=== PATIENT | female | born 1970 | race Caucasian/White ===

== ENCOUNTER 2023-02-05 07:32 | Observation (INO) ==
--- NOTE | 2023-01-20 11:43 | PAT Medication Instructions ---
Medication Instructions Date of Service January 20, 2023 Home Medications buspirone 10 mg tablet 10 mg PO QAM duloxetine 60 mg capsule,delayed release 60 mg PO QAM hydrochlorothiazide 25 mg tablet 25 mg PO QAM lisinopril 10 mg tablet 10 mg PO QAM meloxicam 7.5 mg tablet 7.5 mg PO UD semaglutide 0.25 mg or 0.5 mg (2 mg/3 mL) subcutaneous pen injector (Ozempic) 0.5 mg subcut Q7D weight loss/insulin resistance Continue as directed semaglutide 0.25 mg or 0.5 mg (2 mg/3 mL) subcutaneous pen injector (Ozempic) 0.5 mg subcut Q7D weight loss/insulin resistance ASK your surgeon for instructions meloxicam 7.5 mg tablet 7.5 mg PO UD DO NOT take the morning of surgery hydrochlorothiazide 25 mg tablet 25 mg PO QAM lisinopril 10 mg tablet 10 mg PO QAM Take morning of surgery With a small sip of water, OTHERWISE NOTHING TO EAT OR DRINK AFTER MIDNIGHT: buspirone 10 mg tablet 10 mg PO QAM duloxetine 60 mg capsule,delayed release 60 mg PO QAM Other Notes If you have any questions please call us at [phone] or [phone] or [phone] or [phone]
--- NOTE | 2023-01-24 15:39 | Anesthesiology Consultation ---
Date of Service January 24, 2023 Assessment & Plan (1) Encounter for pre-operative examination: - awaiting cardiology pre-operative evaluation appointment. She requests a [facility] provider in [facility] or [place] if possible, otherwise would like [place] [facility]. Pre-operative appointment form completed. - dyspnea on flat surfaces: Case discussed regarding this and overall with Dr. Damon who advised patient have cardiology pre-operative evaluation. Patient was made aware at PAT visit, she verbalized understanding and agreement-denied questions or concerns. Surgeon's office made aware. - check BSG and urine test STAT am DOS. - previous neuraxial response: patient notes that with previous once spinal started to wear off she developed itching in legs and was treated with Benadryl, she states had no itching upon receiving spinal or throughout until sensation started to wear off. Denies rash, difficulty breathing, speaking or swallowing. - PCP pre-operative appointment 01/23/23 [facility]: "...preop exam. Left knee replacement scheduled with Dr Flores 02/05/23 at [facility]...History of type 2 diabetes. Last A1c was 6.7 in 08/2022...EKG without acute ST-T changes. Patient denies any chest pain, shortness breath, lightheadedness, palpitations...can be cleared for surgery so long as lab work is reasonably normal...3-4 cm erythematous plaque on her right lower leg, lateral side. She has used triamcinolone cream on and off which helps a little bit, however the plaque never truly goes away. Appears psoriasiform in nature. Will switch to betamethasone..." Chart Review Chart Review: Pending: Refer to Additional Notes / Consult section and Patient seen in Pre Admission Testing Teaching & Discussion Pre-Anesthesia Teaching/Discussion Notes: Instructed NPO after midnight before surgery, except medications with 15 cc of water. Medication instructions provided according to the PAT guidelines. History Surgery Operation Date: 02/05/23 09:45 Proposed Procedures p Left Total Knee Arthroplasty - Pop Flores MD Height/Weight Height: 5 ft 1 in Weight: 131.2 kg Allergies Allergy/AdvReac Type Severity Reaction Status Date / Time Penicillins Allergy Intermediate rash Verified 01/24/23 15:29 Medications Home Medications Medication Instructions Recorded Confirmed Last Taken buspirone 10 mg tablet 10 mg PO QAM 01/17/23 01/17/23 Unknown duloxetine 60 mg capsule,delayed 60 mg PO QAM 01/17/23 01/17/23 Unknown release hydrochlorothiazide 25 mg tablet 25 mg PO QAM 01/17/23 01/17/23 Unknown lisinopril 10 mg tablet 10 mg PO QAM 01/17/23 01/17/23 Unknown meloxicam 7.5 mg tablet 7.5 mg PO UD 01/17/23 01/17/23 Unknown semaglutide 0.25 mg or 0.5 mg (2 0.5 mg subcut Q7D weight 01/17/23 01/17/23 Unknown mg/3 mL) subcutaneous pen injector loss/insulin resistance (Ozempic) Past Medical History Medical History (Updated 01/24/23 @ 15:38 by Isidra Parkinson PA-C) Anxiety and depression Diabetes mellitus NIDDM GERD (gastroesophageal reflux disease) controlled, stable per pt History of COVID-18 august or august 2022, tested at urgent care in [place], not hosp; fatigue, cough, nausea for 2 weeks following>no current symptoms Hypertension controlled, stable per pt Sleep apnea dx years ago, does not use device Patient denies h/o stroke, seizures, heart attack, heart failure, blood clots or blood transfusions. Exercise / Class Metabolic Activity III < 4 Walking/Shop/Light housework (SOB with usual activities ongoing x over past year-denies change or worsening, denies chest discomfort) Past Surgical History Surgical History Hx laparoscopic cholecystectomy Hx of arthroscopy of left knee Hx of section x3 [place] teeth extracted Past Anesthesia History Other (slow to wake up-denies unexpected extended intubation or re-intubation; mother with awareness during surgery) History of PONV No Hx of PONV and Hx of Motion Sickness Social History Smoking Status: Never smoker Do You Dip or Chew Tobacco: No Hx Alcohol Use: Yes alcohol intake frequency: holidays/special occasions only Hx Substance Use: No substance use type: does not use Review of Systems Patient denies chest pain, fever, chills, cough, wheezing, or palpitations. Physical Exam Vital Signs Vitals BP 118/70 P 81 TEMP 98.8 SP02 96% on RA RESP 18 Physical Patient resting comfortably in chair in NAD, alert and oriented, responding appropriately throughout entire visit Full cervical extension range of motion without pain TMD < 3 finger breadths Mallampati Score 3, small oral opening Dentition: intact, denies chipped or loose teeth, caps/crowns, implants or bridges Lungs: normal respiratory effort. Good air movement, clear throughout to auscultation, no adventitious breath sounds Cardiac: regular rate and rhythm, no murmurs noted Carotid arteries: negative bruit bilat Lab Results Anesthesia Preop Results Results Anesthesia Widget: WBC 8.15 K/ul (4.8-10.8) 01/24/23 Hgb 14.3 g/dl (12.0-16.0) 01/24/23 Hct 42.0 % (37.0-47.0) 01/24/23 Plt 290 K/uL (130-400) 01/24/23 Na 137 mmol/L (136-145) 01/24/23 K 3.8 mmol/L (3.5-5.1) 01/24/23 Cl 101 mmol/L (98-107) 01/24/23 CO2 29 mmol/L (21-32) 01/24/23 BUN 17 mg/dl (6-23) 01/24/23 Creat 0.64 mg/dl (0.6-1.2) 01/24/23 Glucose Level 129 mg/dl (70-99(Fasting)) H 01/24/23 PT 10.8 Seconds (9.0-12.0) 01/24/23 PTT 27.6 Seconds (21.0-31.0) 01/24/23 INR 1.0 (0.9-1.1) 01/24/23 HA1c 6.5 % (4.5-5.6) H 01/24/23 Urine Color Yellow 01/24/23 Urine Appearance Clear (Clear) 01/24/23 Urine pH 7.0 (4.5-7.5) 01/24/23 Urine Specific Felt 1.019 (1.000-1.030) 01/24/23 Urine Protein Negative (Negative) 01/24/23 Urine Glucose (UA) Negative (Negative) 01/24/23 Urine Ketones Negative (Negative) 01/24/23 Urine Blood Negative (Negative) 01/24/23 Urine Nitrite Negative (Negative) 01/24/23 Urine Bilirubin Negative (Negative) 01/24/23 Urine Urobilinogen Negative (Negative) 01/24/23 Urine Leukocyte Esterase Negative (Negative) 01/24/23 Blood Type O Positive 01/24/23 Antibody Screen NEGATIVE 01/24/23 Testing Electrocardiogram Date: 01/23/23 NSR, rate 68 bpm Low voltage QRS, consider pulmonary disease, pericardial effusion or normal variant Cannot rule out anterior infarct, age undetermined Chest X-Ray Date: 01/24/23 No acute chest disease
--- NOTE | 2023-02-04 08:48 | History & Physical Report ---
Date of Service February 04, 2023 Assessment & Plan (1) Primary osteoarthritis of left knee: Plan: Treatment options discussed with the patient. She has failed conservative measures and would like to proceed with surgery. Risks, benefits and alternatives to surgery including but not limited to infection, DVT, pain, stiffness, need for revision surgery, damage to blood vessels, damage to nerves, PE, , were discussed with the patient and they wish to proceed. Plan on left total knee arthroplasty scheduled for [facility] on 02/05/[address] Flores. Plan on home health PT upon discharge. Plan on Xarelto 10mg daily for DVT prophylaxis for 1 mo post operatively. All questions answered. She will follow up post op. History of Present Illness Chief Complaint: Left knee pain Primary Care Provider: Elizabeth Leon DO 52yo female with PMHx significant for HTN, high cholesterol, DM2, DIONNE, anxiety who presents with ongoiing left knee pain. Patient has failed conservative measures. Her pain is interfering with her daily activities and she would like to proceed with surgical intervention. Patient denies headaches, sweats, fevers, chills, double vision, blurred vision, cough, sore throat, dysphagia, chest pain, sob, wheezing, n/v/d/c, numbness, tingling, fatigue, urinary symptoms, mood disorders. ROS positive for left knee pain and stiffness. Allergies Allergy/AdvReac Type Severity Reaction Status Date / Time Penicillins Allergy Intermediate rash Verified 01/24/23 15:29 Home Medications Medication Instructions Recorded Confirmed Type buspirone 10 mg tablet 10 mg PO QAM 01/17/23 01/17/23 History duloxetine 60 mg capsule,delayed 60 mg PO QAM 01/17/23 01/17/23 History release hydrochlorothiazide 25 mg tablet 25 mg PO QAM 01/17/23 01/17/23 History lisinopril 10 mg tablet 10 mg PO QAM 01/17/23 01/17/23 History meloxicam 7.5 mg tablet 7.5 mg PO UD 01/17/23 01/17/23 History semaglutide 0.25 mg or 0.5 mg (2 0.5 mg subcut Q7D weight 01/17/23 01/17/23 History mg/3 mL) subcutaneous pen injector loss/insulin resistance (Ozempic) Past Med/Surg History Medical History (Updated 02/04/23 @ 08:46 by Tim Vitale PA-C) Anxiety and depression Diabetes mellitus NIDDM GERD (gastroesophageal reflux disease) controlled, stable per pt History of COVID-19 july or august 2022, tested at urgent care in [place], not hosp; fatigue, cough, nausea for 2 weeks following>no current symptoms Hypertension controlled, stable per pt Sleep apnea dx years ago, does not use device Surgical History Hx laparoscopic cholecystectomy Hx of arthroscopy of left knee Hx of section x3 [place] teeth extracted Social History Smoking Status: Never smoker Second Hand Exposure: No; Do You Dip or Chew Tobacco: No; Tobacco Cessation Education Requested by Patient: No Hx Alcohol Use: Yes Hx Substance Use: No Preferred Language: Romanian Communication Ability: Effective 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: No Beliefs That Will Affect Care: None Current Living Situation: Spouse Other Information That Helps Us Care for You: No Feels Safe at Home: Yes Safety Concerns: Feels Safe At This Time Assistive Devices: Glasses Assistive Devices Comment: reading glasses prn Review of Systems All systems reviewed & are unremarkable except as noted in HPI & below Physical Exam Constitutional: well developed and well nourished; no acute distress Eyes: PERRL, conjunctivae normal, anicteric sclerae ENMT: external ear and nose normal, oropharynx normal Neck: trachea midline, no thyromegaly Respiratory: normal respiratory effort, lungs clear to auscultation Cardiovascular: RRR, no murmur, no edema Musculoskeletal: Left knee: Varus alignment. Tenderness medial joint line. Mild crepitation. Positive Jeniffer's, stable to valgus and varus stress. ROM 0-125 degrees with pain. Skin: no rashes, warm and dry Neurologic: patellar DTR's 2+ bilat, sensation intact Psychiatric: A+Ox3, euthymic affect Results & Data Diagnostic Findings Left knee radiographs: X-rays of the bilateral knees demonstrate she has severe bilateral knee osteoarthritis, bone on bone in the medial compartment. Subluxation of the femur medially on the tibia. She has tricompartmental osteophytes. Moderate patellofemoral OA. Centrally aligned patella bilaterally. Four-view bilateral knee x-rays.
[~2023-02-05 07:32] MED LIST: ACETAMINOPHEN 500 MG TAB PO SCH; ALLERGY Noted to ORDERED Medication SCH; BUPIVACAINE 0.5 % 5 MG/1 ML PF 10ML VIAL ONE; CeleBREX 200 MG CAP PO SCH; EPINEPHrine INJ 1 MG/ML AMP ONE; FAMOTIDINE 20 MG TAB PO SCH; GABAPENTIN 900 MG DOSE PO SCH; LR 500ML BOLUS, THEN 15ML/HR IV SCH; LR 60ML/HR IV SCH; METOCLOPRAMIDE HCL 10 MG TABLET PO SCH; ROPIVACAINE 0.5% 5 MG/ML 30 ML VIAL ONE; ROPIVACAINE 0.5% HCL/PF 150 MG, BUPIVACAINE 0.75% MPF 20 ML, EPINEPHrine 30MG/30ML (OR ... INSTIL SCH; TRANEXAMIC ACID 1,000 MG **IV Intra-op IV SCH; TRANEXAMIC ACID 1,000 MG **IV Pre-op IV SCH
[2023-02-05] MEDS ORDERED: PROPOFOL IV EMULSION 10 MG/ML 20 ML VIAL IV ONE ×3 (07:50→11:47)
[2023-02-05] MEDS ORDERED: ONDANSETRON INJ 2 MG/ML 2 ML VIAL ONE (07:50)
[2023-02-05] MEDS ORDERED: MIDAZOLAM HCL 1 MG/ML 2ML VIAL ONE (07:51)
[2023-02-05] MEDS ORDERED: fentaNYL citrate PF 100 MCG/2 ML VIAL ONE (07:51)
[2023-02-05] MEDS ORDERED: fentaNYL citrate PF 100 MCG/2 ML VIAL IV PRN (08:08)
[2023-02-05] MEDS ORDERED: ATROPINE SULFATE 0.1 MG/ML 10ML SYR IV PRN (08:08)
[2023-02-05] MEDS ORDERED: ePHEDrine sulfate 50 MG/ML AMP IV PRN (08:08)
[2023-02-05] MEDS ORDERED: ONDANSETRON INJ 2 MG/ML 2 ML VIAL IV PRN ×2 (08:08→13:37)
[2023-02-05] MEDS ORDERED: Nursing to Pharmacy Communication SCH (09:30)
--- NOTE | 2023-02-05 09:35 | History & Physical Bridge Note ---
Date of Service February 05, 2023 History & Physical Bridge Note I have examined the patient, reviewed the History & Physical and in the interval since the performance of the History & Physical I have noted the following changes of clinical significance: no changes noted
[2023-02-05] MEDS ORDERED: ceFAZolin 3000MG/72.5 ML BAG IV ONE (09:36)
[2023-02-05] MEDS ORDERED: ORTHO JOINT ANESTHETIC ONE (09:54)
[2023-02-05] MEDS ORDERED: ceFAZolin 2000MG 2,000 MG/15 ML SYR IV SCH (10:00)
[2023-02-05] MEDS ORDERED: PHENYLEPHRINE 100MCG/ML 5ML SYR ONE (10:32)
[2023-02-05] MEDS ORDERED: PHENYLEPHRINE HCL 10 MG/ML VIAL ONE (10:32)
--- NOTE | 2023-02-05 12:28 | Operative Report ---
Post Operative Report Pre & Post Diagnosis Operation Date: 02/05/23 09:45 Pre-Op Diagnosis: Osteoarthritis Knee Left, BMI 53.8 Post-Op Diagnosis: Osteoarthritis Knee Left, BMI 53.8 I identified the patient and participated in the time-out.: Yes Procedure Operation Date: 02/05/23 09:45 Actual Procedures p Left Total Knee Arthroplasty(Left), cindi and Acticoat superficial wound VAC application- Pop Flores MD Surgeon Pop Flores MD Brusher Operator Tim NEWTON Estimated Blood Loss 5 Findings Consistent with Post-Op Diagnosis Specimens Bone cuts Drains 2 Hemovac Anesthesia Type MAC Spinal Regional Complications none Disposition Disposition: Recovery Room Indications 52-year-old female with chronic progressive osteoarthritis in both of her knees with severe end-stage bilateral knee osteoarthritis and failed conservative management. Left more symptomatic knee has subluxation the femur medially on the tibia [id number] medial compartment and mildly advanced patellofemoral OA as well. Patient has a varus knee. Description of Procedure Patient taken to the operating room the size under spinal MAC regional block anesthesia. Patient was placed supine on the operating table. A pneumatic tourniquet was placed about the moderately obese left upper thigh. The left lower extremity was prepped and draped in sterile fashion. Knee exam demonstrated moderate obesity about the knee most of her obesity was abdominal and truncal. The leg was elevated exsanguinated with an Esmarch bandage and pneumatic tourniquet was raised to 350 millimeters of mercury. Skin incised sharply in longitudinal fashion. Subcutaneous flaps elevated. Incision was made through the medial retinaculum extending up in the mid third of the quadriceps tendon and down to the medial tibial tubercle. Intra-articular findings demonstrated medial compartment and patellofemoral OA with anteromedial eburnated bone on bone articulation medial compartment with circumferential osteophytes around the patella. There was some small loose bodies.. The vLex triSontran total knee arthroplasty system was used. To expose the knee the infrapatellar fat pad was resected. The small loose bodies were resected. The meniscal remnants and cruciate ligaments were resected. The anterior fat pad over the femur in the area of the location of the anterior flange of the femoral component was resected. The lateral synovial bands were released. The femur was exposed. An intramedullary drill hole was made into the canal. A guide tony was placed. Distal femoral cutting guide was adjusted to resect a 5 degree valgus cut with 8 millimeters distal femur resected. The knee was extended and a subperiosteal peel lateral release was performed around the patella. Patella width was measured and width was reproduced using a freehand cut technique and a 29 symmetrical patella component. The 3 drill holes were made and the excess lateral facet was beveled off to prevent any impingement. Attention was taken back to the femur which was exposed with retractors and the femoral sizing guide was pinned in position. The drill holes were placed in 3 of external rotation to match the epicondylar axis. The femur sized for a 3 component. The 4-in-1 cutting block was placed and then the anterior posterior and chamfer cuts are made. The tibia was then subluxed. The external tibial cutting guide was adjusted to make a perpendicular cut to the long axis of the tibia below the most deficient bone loss medial side. Cut was adjusted for slo pe. A lamina silk trimmer was used and the flexion extension gaps were balanced. Medial and posterior medial releases were required. All posterior osteophytes removed. All meniscal remnants were resected. The tibia exposed and the trial tibial component size 2 was externally rotated in line with the tibial tubercle and pinned in position. The drill and punch for stem were used. The notch cutting device was centered appropriately and the femoral notch cut was made. The femoral trial was inserted. Trial tibial inserts were placed and size 11 posterior stabilized insert gave balanced ligaments through flexion and extension. Patella tracking was assessed. The patella tracked centrally. The trial components were then removed and the orthomix anesthetic cocktail was injected per protocol. The knee was then copiously irrigated with pulsatile lavage saline solution. Final components were then cemented with Refobacin cement. Final components were [place] triathlon posterior stabilized left size 3 femoral implant, size 2 universal baseplate with a 12 x 50 mm cemented stem attached, 11 mm size 2 posterior stabilized X.3 polyethylene tibial bearing insert and a 29 x 8 mm X.3 polyethylene symmetrical patella. After the cement cured the Betadine soak was used for 3 minutes. Further pulsatile lavage irrigation was then performed and 2 Hemovac drains were brought out laterally. The quadriceps tendon and medial retinaculum were closed with figure of 8 #1 Vicryl sutures. The knee was taken through full range of motion and the repair was secure. Knee range of motion was 0 through 130 degrees. The subcutaneous tissues were closed with 2-0 Vicryl sutures. Skin was closed with lisa. Cindi and Acticoat superficial wound VAC was applied. The patient tolerated the procedure well. Tim NEWTON was my physician children's nursery assistant who participated as first helper and was involved in all aspects of the procedure including patient positioning prepping and draping,leg positioning ,soft tissue retraction and instrument management and participated in the closing and application cindi and Acticoat superficial wound VAC and will participate in postoperative care of the patient. The patient tolerated the procedure well. I attest to the content of the Intraoperative Record and any orders documented therein. Any exceptions are noted below.
[2023-02-05] MEDS ORDERED: NALOXONE HCL 0.4 MG/1 ML VIAL/CARP IV PRN (13:37)
[2023-02-05] MEDS ORDERED: MAGNESIUM HYDROXIDE SUSP 30 ML UDC PO PRN (13:37)
[2023-02-05] MEDS ORDERED: bisacodyL 10 MG SUPP PR PRN (13:37)
[2023-02-05] MEDS ORDERED: VANCOMYCIN CONSULT ACTIVE PRN (13:37)
[2023-02-05] MEDS ORDERED: PHARMACY GLYCEMIC MGMT CONSULT PRN (13:37)
[2023-02-05] MEDS ORDERED: METOCLOPRAMIDE HCL INJ 5 MG/ML 2 ML VIAL IV PRN (13:37)
--- NOTE | 2023-02-05 13:46 | XRay Report ---
XR knee LT 1 or 2V routine HISTORY: 52 years-old Female Surgical Post Op left knee arthroplasty COMPARISON: None TECHNIQUE: 2 views of the left knee FINDINGS: Total joint arthroplasty with patellar resurfacing. Surgical drainage catheter with anterior midline skin lisa, expected postoperative soft tissue swelling the deep tissue air. No acute fracture or u nexpected opaque foreign body. IMPRESSION: Total joint arthroplasty with expected postoperative changes. ACT 112: Negative or not required by law. The above report was generated using voice recognition software. It may contain grammatical, syntax o r spelling errors. Electronically signed by: Pasquale Guzmán M.D. 02/05/2023 1:45 PM
[2023-02-05] MEDS: SODIUM CHLORIDE 0.9% 1,000 ML IV SCH (13:58)
[2023-02-05] MEDS: ACETAMINOPHEN 500 MG TAB PO SCH ×2 (13:59→20:20)
--- NOTE | 2023-02-05 14:12 | Consultation ---
Date of Consultation February 05, 2023 Assessment & Plan (1) S/P total knee arthroplasty: (2) Primary osteoarthritis of left knee: Post op day# 0 S/P left TKA by Dr Flores EB# 5ml -pain management per ortho -wound management per ortho -PT/OT as appropriate -DVT prophylaxis per ortho -incentive spirometry -monitor H&H for acute blood loss anemia, pre-op Hgb: 14 per chart review (3) Hypertension: -Continue lisinopril, HCTZ (4) Diabetes mellitus: A1c: 6.7 on 09/13/2022 Diet controlled -Recently started Ozempic. Hold Ozempic while hospitalized -NovoLog sliding scale per protocol (5) Anxiety and depression: -Continue duloxetine, buspirone (6) Dyslipidemia: -Prescribed statin however has not started yet (7) Morbid obesity: BMI: 53.8 -Lifestyle modifications recommended -Just recently started Ozempic (8) Sleep apnea: -Does not use CPAP DVT Prophylaxis SCDs Full Code as per discussion with pt Follows with Dr Leon for routine care Pt was seen and care coordinated with Dr Carlisle. See addendum Supervising Physician Co-Signing Physician Notes Pt seen and examined by myself, Nia Carlisle MD on the day of service. Care was coordinated with Nichole Alamo PA-C. Please refer to her note for additional information. 52yoF with PMHx significant for diet controlled DMII, HLD, HTN, DIONNE and anxiety/depression who is POD #0 s/p L TKA. Follow H/H post-op. Hold home ozempic, ISS while hospitalized. Continue other home medications. Pain control, DVT prophylaxis, wound management- per primary, appreciate recs. Otherwise as above. History of Present Illness Requesting Physician: Dr Flores Reason for Consultation: Postop medical management Attending Physician: Pop Flores MD History of Present Illness Patient is 52-year-old female with PMH HTN, dyslipidemia, DM II, depression, anxiety, GERD, morbid obesity, DIONNE s/p Left TKA today by Dr Flores. History obtained from patient and outpatient chart review. Post op patient reports is doing well. Left leg still with numbness. No pain currently. Has not urinated yet. Last BM yesterday. Denies CP, SOB, fever/chills, N/V/D, EDWARDS, dizziness, CP, SOB, cough, sore throat, rhinorrhea, abdominal pain, extremity edema, rashes, urinary symptoms. Allergies Allergy/AdvReac Type Severity Reaction Status Date / Time Penicillins Allergy Intermediate rash Verified 02/05/23 07:55 Home Medications Medication Instructions Recorded Confirmed Type buspirone 10 mg tablet 10 mg PO QAM 01/17/23 02/05/23 History duloxetine 60 mg capsule,delayed 60 mg PO QAM 01/17/23 02/05/23 History release hydrochlorothiazide 25 mg tablet 25 mg PO QAM 01/17/23 02/05/23 History lisinopril 10 mg tablet 10 mg PO QAM 01/17/23 02/05/23 History meloxicam 7.5 mg tablet 7.5 mg PO UD 01/17/23 02/05/23 History semaglutide 0.25 mg or 0.5 mg (2 0.5 mg subcut Q7D weight 01/17/23 02/05/23 History mg/3 mL) subcutaneous pen injector loss/insulin resistance (Ozempic) Patient History Medical History (Updated 02/05/23 @ 14:35 by Nichole Alamo PA-C) Anxiety and depression Diabetes mellitus NIDDM Dyslipidemia GERD (gastroesophageal reflux disease) controlled, stable per pt History of COVID-19 july or august 2022, tested at urgent care in [place], not hosp; fatigue, cough, nausea for 2 weeks following>no current symptoms Hypertension controlled, stable per pt Morbid obesity Sleep apnea dx years ago, does not use device Surgical History (Updated 02/05/23 @ 14:35 by Nichole Alamo PA-C) Hx laparoscopic cholecystectomy Hx of arthroscopy of left knee Hx of section x3 S/P total knee arthroplasty left knee, Dr Flores [facility], 02/05/23 [place] teeth extracted Social History Smoking Status: Never smoker Second Hand Exposure: No; Do You Dip or Chew Tobacco: No; Tobacco Cessation Education Requested by Patient: No Hx Alcohol Use: Yes Hx Substance Use: No Preferred Language: Burkinan Communication Ability: Effective Molder Fitting Required: No Beliefs That Will Affect Care: None Current Living Situation: Spouse Other Information That Helps Us Care for You: No Feels Safe at Home: Yes Safety Concerns: Feels Safe At This Time Assistive Devices: Glasses Assistive Devices Comment: reading glasses prn Review of Systems Review of Systems: All systems reviewed & are unremarkable except as noted in HPI & below Physical Exam Physical Exam: General: no distress, obese Head: normocephalic, atraumatic Eyes: conjunctiva non-injected, anicteric ENT: normal inspection external ears, nose, mucous membranes moist Neck: supple, trachea midline Lungs: clear, no respiratory distress, no wheezing/rhonchi/rales CV: RRR, no murmur, no pretibial edema Abd: normal BS, soft, non-tender Ext: LE: +surgical dressing and SHIRAZ wrap in place, +hemovac in place, distal pulses palpable. Remaining extremities with normal appearance Neuro: A&O x 3, no focal deficits noted, normal affect Skin: warm, dry Results & Data Vital Signs (Past 12 Hours) Vital Signs Temp Pulse Pulse Resp BP Pulse Ox O2 Del Method 02/05/23 13:30 36.6 C 72 16 128/76 95 Room Air 02/05/23 13:15 36.5 C 80 15 132/81 95 Room Air 02/05/23 13:05 36.5 C 78 16 119/63 98 Room Air 02/05/23 12:55 78 15 111/83 97 Oxymask 02/05/23 12:45 82 14 115/77 97 Oxymask 02/05/23 12:35 87 22 122/85 98 Oxymask 02/05/23 12:29 36.8 C 110 H 18 103/57 L 95 Oxymask 02/05/23 08:08 37.0 C 84 22 127/91 95 Room Air O2 Flow Rate 02/05/23 13:30 02/05/23 13:15 02/05/23 13:05 02/05/23 12:55 3 02/05/23 12:45 3 02/05/23 12:35 3 02/05/23 12:29 5 02/05/23 08:08
--- NOTE | 2023-02-05 14:23 | Pharmacy Report ---
Pharmacy Glycemic Short Note 2 - Date of Service February 05, 2023 - Glycemic Short BSG Results (Last 24 hours): 02/05/23 02/05/23 02/05/23 08:06 12:32 14:08 POC Glucose 124 H 116 H 145 H OUTPATIENT ANTIDIABETIC REGIMEN: * Ozempic 0.5mg every Friday (last dose 01/21) * HbA1c 6.5% 01/24/23 ASSESSMENT: * Sanjuanita Wood is a 52 YOF admitted s/p left TKA. Pharmacy has been consulted for glycemic management. * Patient received preop antibiotics no other stressors noted at this time, T2DM diet ordered. * Fasting BSG was within goal range, will hold basal insulin at this time. Will initiate if BSGs consistently elevated. * Will initiate Novolog at a stress of 2 based on adjusted body weight. PLAN FOR INPATIENT GLYCEMIC CONTROL: * Hold outpatient oral diabetes medications * Basal insulin * no basal initiated at this time * Bolus insulin * NovoLog per scale ACHS or Q6hrs while NPO * Goal Range: Low 110 mg/dL - High 140 mg/dL * Correction Factor: 30 mg/dL/unit * Nutritional / Prandial insulin per carb ratio of 1 unit per 10 grams CHO consumed
[2023-02-05] MEDS ORDERED: GLUCOSE 10 TAB/TUBE PO PRN (14:48)
[2023-02-05] MEDS ORDERED: GLUCOSE 40% GEL 15 GM TUBE PO PRN (14:48)
[2023-02-05] MEDS ORDERED: DEXTROSE 50% 50 ML SYRINGE IV PRN (14:48)
[2023-02-05] MEDS ORDERED: GLUCAGON FOR INJ 1 MG VIAL SQ PRN (14:48)
[2023-02-05] MEDS ORDERED: CARBOHYDRATES FOR HYPOGLYCEMIA PO PRN (14:48)
[2023-02-05] MEDS ORDERED: INSULIN ASPART PER UNIT CHARGE SC SCH (16:30)
[2023-02-05] MEDS: oxyCODONE HCL IR 5 MG TAB (IMMEDIATE RELEASE) PO PRN ×2 (16:51→20:52)
[2023-02-05] MEDS: INSULIN ASPART PER UNIT CHARGE SC SCH ×2 (16:52→21:36)
[2023-02-05] MEDS ORDERED: VANCOMYCIN HCL 2,000 MG in SODIUM CHLORIDE 0.9% 500 ML IV SCH (18:00)
[2023-02-05] MEDS: HYDROmorphone INJ 0.5 MG/0.5 ML SYR IV PRN (20:11)
[2023-02-05] MEDS: SENNA 8.6 MG TAB PO SCH (21:39)
[2023-02-05] MEDS: DOCUSATE SODIUM 100 MG CAP PO SCH (21:40)
[2023-02-06] MEDS: oxyCODONE HCL IR 5 MG TAB (IMMEDIATE RELEASE) PO PRN ×6 (00:52→21:46)
[2023-02-06] MEDS: SODIUM CHLORIDE 0.9% 1,000 ML IV SCH (01:16)
[2023-02-06] MEDS: HYDROmorphone INJ 0.5 MG/0.5 ML SYR IV PRN (02:11)
[2023-02-06] MEDS ORDERED: HYDROmorphone INJ 0.5 MG/0.5 ML SYR IV STA (04:08)
[2023-02-06] MEDS: ACETAMINOPHEN 500 MG TAB PO SCH ×3 (05:35→21:19)
[2023-02-06 06:38] LABS: Hematocrit (blood only) 36.4 % (37.0-47.0); Hemoglobin 12.2 g/dl (12.0-16.0); Mean Corpuscular Hemoglobin 31.7 pg (25.0-34.0); Mean Corpuscular Hgb Conc 33.5 g/dL (32.0-36.0); Mean Corpuscular Volume 94.5 fL (80.0-100.0); Platelet Count 221 K/uL (130-400); RDW Coefficient of Variation 12.4 % (11.5-14.5); RDW Standard Deviation 43.4 fL (36.4-46.3); Red Blood Count 3.85 M/uL (4.20-5.40); White Blood Count 9.02 K/ul (4.8-10.8)
[2023-02-06] MEDS ORDERED: KETOROLAC TROMETHAMINE 15 MG/ML VIAL IV ONE (06:42)
--- NOTE | 2023-02-06 06:47 | Orthopedic Progress Note ---
Date of Service February 06, 2023 Assessment & Plan (1) S/P total knee arthroplasty: Plan: Postop day #1 left total knee arthroplasty -PT/OT -Pain management as written. 1 dose of Toradol ordered. -DVT prophylaxis: SCDs, teds, Xarelto 10 mg daily -AM labs: Hemoglobin 12.2 from 14 preop. Acute blood loss anemia due to surgical loss versus dilutional. Chemistries are pending -Discharge planning: Plan on discharge home with home health when stable. Currently patient's pain is not well controlled. She will work with therapy today. Dose of Toradol ordered. If doing much better later today consider discharge home today, likely tomorrow. Admission and Anticipated Discharge Date Admission Date: February 05, 2023 Subjective Patient is resting in bed. She states she had a rough night in regards to pain. Was having difficulty getting her pain under control. No other complaints. Denies chest pain, shortness of breath, nausea/vomiting/diarrhea, headaches or dizziness. Review of Systems Review of Systems: All systems reviewed & are unremarkable except as noted in Subjective Physical Exam Physical Exam: Left knee: Dressing is clean, dry, intact. No calf tenderness. Toes are mobile with good dorsiflexion. Able to do a straight leg raise. Distally neurovascular status and sensation is grossly intact. Constitutional: WD/WN, vitals as above Results & Data Vital Signs (Past 12 Hours) Vital Signs Temp Pulse Resp BP Pulse Ox O2 Del Method 02/06/23 03:50 36.8 C 77 18 109/67 97 Room Air 02/05/23 22:39 36.8 C 82 18 113/72 97 Room Air 02/05/23 19:20 36.8 C 87 18 111/69 96 Room Air Laboratory Results Lab Results 02/05/23 02/05/23 02/05/23 Range/Units 08:06 08:25 12:32 WBC (4.8-10.8) K/ul RBC (4.20-5.40) M/uL Hgb (12.0-16.0) g/dl Hct (37.0-47.0) % MCV (80.0-100.0) fL MCH (25.0-34.0) pg MCHC (32.0-36.0) g/dL RDW Std Deviation (36.4-46.3) fL RDW Coeff of Juancarlos (11.5-14.5) % Plt Count (130-400) K/uL MPV (9.4-12.4) fL POC Glucose 124 H 116 H (70-99) mg/dl POC Ur Test NEG (NEG) 02/05/23 02/05/23 02/05/23 Range/Units 14:08 16:39 20:25 WBC (4.8-10.8) K/ul RBC (4.20-5.40) M/uL Hgb (12.0-16.0) g/dl Hct (37.0-47.0) % MCV (80.0-100.0) fL MCH (25.0-34.0) pg MCHC (32.0-36.0) g/dL RDW Std Deviation (36.4-46.3) fL RDW Coeff of Juancarlos (11.5-14.5) % Plt Count (130-400) K/uL MPV (9.4-12.4) fL POC Glucose 145 H 138 H 118 H (70-99) mg/dl POC Ur Test (NEG) 02/06/23 Range/Units 05:53 WBC 9.02 (4.8-10.8) K/ul RBC 3.85 L (4.20-5.40) M/uL Hgb 12.2 (12.0-16.0) g/dl Hct 36.4 L (37.0-47.0) % MCV 94.5 (80.0-100.0) fL MCH 31.7 (25.0-34.0) pg MCHC 33.5 (32.0-36.0) g/dL RDW Std Deviation 43.4 (36.4-46.3) fL RDW Coeff of Juancarlos 12.4 (11.5-14.5) % Plt Count 221 (130-400) K/uL MPV 10.0 (9.4-12.4) fL POC Glucose (70-99) mg/dl POC Ur Test (NEG) Diagnostic Findings XR knee LT 1 or 2V routine HISTORY: 52 years-old Female Surgical Post Op left knee arthroplasty COMPARISON: None TECHNIQUE: 2 views of the left knee FINDINGS: Total joint arthroplasty with patellar resurfacing. Surgical drainage catheter with anterior midline skin lisa, expected postoperative soft tissue swelling the deep tissue air. No acute fracture or unexpected opaque foreign body. IMPRESSION: Total joint arthroplasty with expected postoperative changes.
[2023-02-06 06:53] LABS: BUN Creatinine Ratio 21.3 (10-20); Calcium 8.5 mg/dl (8.6-10.3); Creatinine Clr Calc Pharmacy 112.6 ml/min; Est GFR (Non-African American) 92.3 ml/min; Potassium 3.9 mmol/L (3.5-5.1)
[2023-02-06 07:17] LABS: Estimated Average Glucose 140 mg/dl; Hemoglobin A1C 6.5 % (4.5-5.6)
[2023-02-06] MEDS: MULTIVITAMIN TAB PO SCH (08:13)
[2023-02-06] MEDS: hydroCHLOROthiazide 25 MG TAB PO SCH (08:13)
[2023-02-06] MEDS: busPIRone 5 MG TAB PO SCH (08:13)
[2023-02-06] MEDS: DULoxetine HCL 60 MG CAP PO SCH (08:13)
[2023-02-06] MEDS: RIVAROXABAN 10 MG TABLET PO SCH (08:13)
[2023-02-06] MEDS: DOCUSATE SODIUM 100 MG CAP PO SCH ×2 (08:13→21:19)
[2023-02-06] MEDS: lisinopril 10 MG TAB PO SCH (08:13)
[2023-02-06] MEDS: HYDROmorphone INJ 1 MG/ML SYRINGE IV PRN ×4 (08:18→21:19)
[2023-02-06] MEDS: INSULIN ASPART PER UNIT CHARGE SC SCH ×4 (08:22→21:18)
--- NOTE | 2023-02-06 13:32 | Hospitalist Progress Note ---
Date of Service February 06, 2023 Assessment & Plan (1) S/P total knee arthroplasty: (2) Primary osteoarthritis of left knee: Plan: S/P left total knee arthroplasty by Dr Flores on 02/05/23 Postoperative acute blood loss anemia Pain control, wound care, activity as per primary team On Xarelto for anticoagulation Monitor CBC Bowel regimen to prevent constipation Appreciate orthopedics input Continue PT OT (3) Hypertension: Plan: -Continue lisinopril, HCTZ (4) Diabetes mellitus: Plan: A1c: 6.7 on 09/13/2022 Diet controlled -Recently started Ozempic. Hold Ozempic while hospitalized -NovoLog sliding scale per protocol Monitor blood glucose levels (5) Anxiety and depression: Plan: -Continue duloxetine, buspirone (6) Dyslipidemia: Plan: -Prescribed statin however has not started yet (7) Morbid obesity: Plan: BMI: 53.8 -Lifestyle modifications recommended -Just recently started Ozempic (8) Sleep apnea: Plan: -Does not use CPAP DVT Prophylaxis Xarelto Code Status Full Code Admission and Anticipated Discharge Date Admission Date: February 05, 2023 Subjective Patient is seen and examined at bedside States having left knee pain at surgical site Ambulated with the help of physical therapy this morning Denies any chest pain, dyspnea, dizziness, nausea, vomiting, abdominal pain Family at bedside No other complaints Review of Systems Review of Systems: All systems reviewed & are unremarkable except as noted in Subjective Physical Exam Physical Exam: Physical Exam: Vitals signs as noted above General Appearance:Obese, no apparent distress Head: normocephalic, Atraumatic Eyes: normal inspection, EOMI Neck: supple, Trachea midline Respiratory/Chest: Normal breath sounds, CTA, No accessory muscle use Cardiovascular: S1, S2, No murmur Abdomen/GI:Soft, Non tender, Bowel sounds present Extremities/Musculoskeletal:normal inspection, no edema, L knee in surgical dressing Neurologic/Psych:AAOX3, grossly no focal neurological deficits Skin: normal color, warm Results & Data Results & Data Vital Signs (Past 12 Hours) Vital Signs Temp Pulse Resp BP Pulse Ox O2 Del Method 02/06/23 07:30 Room Air 02/06/23 07:15 36.8 C 92 H 16 133/80 94 Room Air 02/06/23 03:50 36.8 C 77 18 109/67 97 Room Air Laboratory Results Short CBC 02/06/23 Range/Units 05:53 WBC 9.02 (4.8-10.8) K/ul Hgb 12.2 (12.0-16.0) g/dl Hct 36.4 L (37.0-47.0) % Plt Count 221 (130-400) K/uL BMP 02/06/23 05:53 Sodium 135 L Potassium 3.9 Chloride 102 Carbon Dioxide 30 BUN 16 Creatinine 0.75 Glucose 137 H Calcium 8.5 L
[2023-02-06] MEDS: SENNA 8.6 MG TAB PO SCH (21:19)
[2023-02-07] MEDS: HYDROmorphone INJ 1 MG/ML SYRINGE IV PRN ×4 (01:11→18:19)
[2023-02-07] MEDS: oxyCODONE HCL IR 5 MG TAB (IMMEDIATE RELEASE) PO PRN ×4 (03:11→16:43)
[2023-02-07] MEDS: ACETAMINOPHEN 500 MG TAB PO SCH ×3 (05:11→20:47)
--- NOTE | 2023-02-07 07:05 | Orthopedic Progress Note ---
Date of Service February 07, 2023 Assessment & Plan (1) S/P total knee arthroplasty: Plan: Postop day #1 left total knee arthroplasty -PT/OT -Pain management: 1 dose of Toradol ordered yesterday. Pain is continuing to be uncontrolled. We will adjust her pain medication to see if this can offer her better control. -DVT prophylaxis: SCDs, teds, Xarelto 10 mg daily -Discharge planning: Plan on discharge home with home health when stable. Currently patient's pain is not well controlled. She will work with therapy today. Discussed limiting IV pain medication.Add celebrex daily, add longer acting pain med. If doing much better later today consider discharge home today versus tomorrow. Admission and Anticipated Discharge Date Admission Date: February 05, 2023 Subjective Patient is postop day 2. She is having continued pain that is not adequately controlled. She is continuing to need the IV Dilaudid. No other complaints. Denies chest pain, shortness of breath, nausea/vomiting/diarrhea, headaches or dizziness. Review of Systems Review of Systems: All systems reviewed & are unremarkable except as noted in Subjective Physical Exam Physical Exam: Left knee: Dressing is clean, dry, intact. No calf tenderness. Toes are mobile with good dorsiflexion. Distally neurovascular status and sensation is grossly intact. Results & Data Vital Signs (Past 12 Hours) Vital Signs Temp Pulse Resp BP Pulse Ox O2 Del Method 02/06/23 23:38 Room Air 02/06/23 21:10 36.4 C L 91 H 16 131/82 93 Room Air Laboratory Results Lab Results 02/05/23 02/05/23 02/05/23 Range/Units 08:06 08:25 12:32 WBC (4.8-10.8) K/ul RBC (4.20-5.40) M/uL Hgb (12.0-16.0) g/dl Hct (37.0-47.0) % MCV (80.0-100.0) fL MCH (25.0-34.0) pg MCHC (32.0-36.0) g/dL RDW Std Deviation (36.4-46.3) fL RDW Coeff of Juancarlos (11.5-14.5) % Plt Count (130-400) K/uL MPV (9.4-12.4) fL Sodium (136-145) mmol/L Potassium (3.5-5.1) mmol/L Chloride (98-107) mmol/L Carbon Dioxide (21-32) mmol/L Anion Gap (3-11) BUN (6-23) mg/dl Creatinine (0.6-1.2) mg/dl Est Cr Clr Drug Dosing ml/min Est GFR ( Amer) ml/min Est GFR (Non-Af Amer) ml/min BUN/Creatinine Ratio (10-20) Glucose (70-99(Fasting)) mg/dl POC Glucose 124 H 116 H (70-99) mg/dl Estimat Average Glucose mg/dl Hemoglobin A1c (4.5-5.6) % Calcium (8.6-10.3) mg/dl POC Ur Test NEG (NEG) 02/05/23 02/05/23 02/05/23 Range/Units 14:08 16:39 20:25 WBC (4.8-10.8) K/ul RBC (4.20-5.40) M/uL Hgb (12.0-16.0) g/dl Hct (37.0-47.0) % MCV (80.0-100.0) fL MCH (25.0-34.0) pg MCHC (32.0-36.0) g/dL RDW Std Deviation (36.4-46.3) fL RDW Coeff of Juancarlos (11.5-14.5) % Plt Count (130-400) K/uL MPV (9.4-12.4) fL Sodium (136-145) mmol/L Potassium (3.5-5.1) mmol/L Chloride (98-107) mmol/L Carbon Dioxide (21-32) mmol/L Anion Gap (3-11) BUN (6-23) mg/dl Creatinine (0.6-1.2) mg/dl Est Cr Clr Drug Dosing ml/min Est GFR ( Amer) ml/min Est GFR (Non-Af Amer) ml/min BUN/Creatinine Ratio (10-20) Glucose (70-99(Fasting)) mg/dl POC Glucose 145 H 138 H 118 H (70-99) mg/dl Estimat Average Glucose mg/dl Hemoglobin A1c (4.5-5.6) % Calcium (8.6-10.3) mg/dl POC Ur Test (NEG) 02/06/23 02/06/23 02/06/23 Range/Units 05:53 05:53 05:53 WBC 9.02 (4.8-10.8) K/ul RBC 3.85 L (4.20-5.40) M/uL Hgb 12.2 (12.0-16.0) g/dl Hct 36.4 L (37.0-47.0) % MCV 94.5 (80.0-100.0) fL MCH 31.7 (25.0-34.0) pg MCHC 33.5 (32.0-36.0) g/dL RDW Std Deviation 43.4 (36.4-46.3) fL RDW Coeff of Juancarlos 12.4 (11.5-14.5) % Plt Count 221 (130-400) K/uL MPV 10.0 (9.4-12.4) fL Sodium 135 L (136-145) mmol/L Potassium 3.9 (3.5-5.1) mmol/L Chloride 102 (98-107) mmol/L Carbon Dioxide 30 (21-32) mmol/L Anion Gap 3 (3-11) BUN 16 (6-23) mg/dl Creatinine 0.75 (0.6-1.2) mg/dl Est Cr Clr Drug Dosing 112.6 ml/min Est GFR ( Amer) 107.0 ml/min Est GFR (Non-Af Amer) 92.3 ml/min BUN/Creatinine Ratio 21.3 H (10-20) Glucose 137 H (70-99(Fasting)) mg/dl POC Glucose (70-99) mg/dl Estimat Average Glucose 140 mg/dl Hemoglobin A1c 6.5 H (4.5-5.6) % Calcium 8.5 L (8.6-10.3) mg/dl POC Ur Test (NEG) 02/06/23 02/06/23 02/06/23 Range/Units 07:33 11:39 16:40 WBC (4.8-10.8) K/ul RBC (4.20-5.40) M/uL Hgb (12.0-16.0) g/dl Hct (37.0-47.0) % MCV (80.0-100.0) fL MCH (25.0-34.0) pg MCHC (32.0-36.0) g/dL RDW Std Deviation (36.4-46.3) fL RDW Coeff of Juancarlos (11.5-14.5) % Plt Count (130-400) K/uL MPV (9.4-12.4) fL Sodium (136-145) mmol/L Potassium (3.5-5.1) mmol/L Chloride (98-107) mmol/L Carbon Dioxide (21-32) mmol/L Anion Gap (3-11) BUN (6-23) mg/dl Creatinine (0.6-1.2) mg/dl Est Cr Clr Drug Dosing ml/min Est GFR ( Amer) ml/min Est GFR (Non-Af Amer) ml/min BUN/Creatinine Ratio (10-20) Glucose (70-99(Fasting)) mg/dl POC Glucose 127 H 145 H 129 H (70-99) mg/dl Estimat Average Glucose mg/dl Hemoglobin A1c (4.5-5.6) % Calcium (8.6-10.3) mg/dl POC Ur Test (NEG) 02/06/23 Range/Units 21:08 WBC (4.8-10.8) K/ul RBC (4.20-5.40) M/uL Hgb (12.0-16.0) g/dl Hct (37.0-47.0) % MCV (80.0-100.0) fL MCH (25.0-34.0) pg MCHC (32.0-36.0) g/dL RDW Std Deviation (36.4-46.3) fL RDW Coeff of Juancarlos (11.5-14.5) % Plt Count (130-400) K/uL MPV (9.4-12.4) fL Sodium (136-145) mmol/L Potassium (3.5-5.1) mmol/L Chloride (98-107) mmol/L Carbon Dioxide (21-32) mmol/L Anion Gap (3-11) BUN (6-23) mg/dl Creatinine (0.6-1.2) mg/dl Est Cr Clr Drug Dosing ml/min Est GFR ( Amer) ml/min Est GFR (Non-Af Amer) ml/min BUN/Creatinine Ratio (10-20) Glucose (70-99(Fasting)) mg/dl POC Glucose 142 H (70-99) mg/dl Estimat Average Glucose mg/dl Hemoglobin A1c (4.5-5.6) % Calcium (8.6-10.3) mg/dl POC Ur Test (NEG)
[2023-02-07] MEDS: RIVAROXABAN 10 MG TABLET PO SCH (07:51)
[2023-02-07] MEDS: lisinopril 10 MG TAB PO SCH (07:51)
[2023-02-07] MEDS: hydroCHLOROthiazide 25 MG TAB PO SCH (07:51)
[2023-02-07] MEDS: busPIRone 5 MG TAB PO SCH (07:52)
[2023-02-07] MEDS: MULTIVITAMIN TAB PO SCH (07:52)
[2023-02-07] MEDS: DOCUSATE SODIUM 100 MG CAP PO SCH ×2 (07:52→20:46)
[2023-02-07] MEDS: DULoxetine HCL 60 MG CAP PO SCH (07:52)
[2023-02-07] MEDS: INSULIN ASPART PER UNIT CHARGE SC SCH ×4 (07:53→20:48)
[2023-02-07] MEDS: MoRPHine SULFATE CR 15 MG TABCR PO SCH ×2 (08:08→20:46)
[2023-02-07 08:39] LABS: Hematocrit (blood only) 36.6 % (37.0-47.0); Hemoglobin 12.5 g/dl (12.0-16.0); Mean Corpuscular Hemoglobin 31.6 pg (25.0-34.0); Mean Corpuscular Hgb Conc 34.2 g/dL (32.0-36.0); Mean Corpuscular Volume 92.4 fL (80.0-100.0); Platelet Count 237 K/uL (130-400); RDW Coefficient of Variation 12.3 % (11.5-14.5); RDW Standard Deviation 42.4 fL (36.4-46.3); Red Blood Count 3.96 M/uL (4.20-5.40); White Blood Count 8.07 K/ul (4.8-10.8)
[2023-02-07 08:57] LABS: Creatinine Clr Calc Pharmacy 143.1 ml/min; Est GFR (Non-African American) 106.1 ml/min; Potassium 3.6 mmol/L (3.5-5.1)
[2023-02-07] MEDS: CeleBREX 200 MG CAP PO SCH (09:35)
[2023-02-07] MEDS ORDERED: POLYETHYLENE (MIRALAX) 17 GM PACK PO ONE (11:54)
[2023-02-07] MEDS ORDERED: POLYETHYLENE (MIRALAX) 17 GM PACK PO PRN (18:53)
--- NOTE | 2023-02-07 18:54 | Hospitalist Progress Note ---
Date of Service February 07, 2023 Assessment & Plan (1) S/P total knee arthroplasty: (2) Primary osteoarthritis of left knee: Plan: S/P left total knee arthroplasty by Dr Flores on 02/05/23 Postoperative acute blood loss anemia Pain control, wound care, activity as per primary team On Xarelto for anticoagulation Monitor CBC Bowel regimen to prevent constipation Appreciate orthopedics input Continue PT OT Pain medication suggested Disposition as per primary team (3) Hypertension: Plan: -Continue lisinopril, HCTZ (4) Diabetes mellitus: Plan: A1c: 6.7 on 09/13/2022 Diet controlled -Recently started Ozempic. Hold Ozempic while hospitalized -NovoLog sliding scale per protocol Monitor blood glucose levels (5) Anxiety and depression: Plan: -Continue duloxetine, buspirone (6) Dyslipidemia: Plan: -Prescribed statin however has not started yet (7) Morbid obesity: Plan: BMI: 53.8 -Lifestyle modifications recommended -Just recently started Ozempic (8) Sleep apnea: Plan: -Does not use CPAP DVT Prophylaxis Xarelto Code Status Full Code Admission and Anticipated Discharge Date Admission Date: February 05, 2023 Subjective Patient is seen and examined at bedside Reports having significant left knee pain and surgical site after having physical therapy today No other complaints Denies any chest pain, dyspnea, dizziness, nausea, vomiting, abdominal pain No BM today Review of Systems Review of Systems: All systems reviewed & are unremarkable except as noted in Subjective Physical Exam Physical Exam: Physical Exam: Vitals signs as noted above General Appearance:Obese, no apparent distress Head: normocephalic, Atraumatic Eyes: normal inspection, EOMI Neck: supple, Trachea midline Respiratory/Chest: Normal breath sounds, CTA, No accessory muscle use Cardiovascular: S1, S2, No murmur Abdomen/GI:Soft, Non tender, Bowel sounds present Extremities/Musculoskeletal:normal inspection, no edema, L knee in surgical site Neurologic/Psych:AAOX3, grossly no focal neurological deficits Skin: normal color, warm Results & Data Results & Data Vital Signs (Past 12 Hours) Vital Signs Temp Pulse Resp BP Pulse Ox O2 Del Method 02/07/23 15:34 36.6 C 91 H 16 125/83 94 Room Air 02/07/23 07:14 37.0 C 97 H 16 136/82 95 Room Air Laboratory Results Short CBC 02/07/23 Range/Units 08:02 WBC 8.07 (4.8-10.8) K/ul Hgb 12.5 (12.0-16.0) g/dl Hct 36.6 L (37.0-47.0) % Plt Count 237 (130-400) K/uL BMP 02/07/23 08:02 Sodium 133 L Potassium 3.6 Chloride 98 Carbon Dioxide 28 BUN 13 Creatinine 0.59 L Glucose 138 H Calcium 9.0
[2023-02-07] MEDS: SENNA 8.6 MG TAB PO SCH (20:47)
[2023-02-08] MEDS: HYDROmorphone INJ 1 MG/ML SYRINGE IV PRN (01:30)
[2023-02-08] MEDS: ACETAMINOPHEN 500 MG TAB PO SCH (05:05)
[2023-02-08] MEDS: oxyCODONE HCL IR 5 MG TAB (IMMEDIATE RELEASE) PO PRN ×2 (05:05→10:02)
[2023-02-08] MEDS: DOCUSATE SODIUM 100 MG CAP PO SCH (07:15)
[2023-02-08] MEDS: hydroCHLOROthiazide 25 MG TAB PO SCH (07:15)
[2023-02-08] MEDS: MoRPHine SULFATE CR 15 MG TABCR PO SCH (07:15)
[2023-02-08] MEDS: DULoxetine HCL 60 MG CAP PO SCH (07:15)
[2023-02-08] MEDS: CeleBREX 200 MG CAP PO SCH (07:16)
[2023-02-08] MEDS: lisinopril 10 MG TAB PO SCH (07:16)
[2023-02-08] MEDS: MULTIVITAMIN TAB PO SCH (07:16)
[2023-02-08] MEDS: busPIRone 5 MG TAB PO SCH (07:16)
[2023-02-08] MEDS: RIVAROXABAN 10 MG TABLET PO SCH (07:17)
[2023-02-08 07:35] LABS: Hematocrit (blood only) 35.7 % (37.0-47.0); Hemoglobin 12.3 g/dl (12.0-16.0); Mean Corpuscular Hemoglobin 31.7 pg (25.0-34.0); Mean Corpuscular Hgb Conc 34.5 g/dL (32.0-36.0); Mean Platelet Volume 9.9 fL (9.4-12.4); Platelet Count 237 K/uL (130-400); RDW Coefficient of Variation 12.6 % (11.5-14.5); RDW Standard Deviation 41.4 fL (36.4-46.3); Red Blood Count 3.88 M/uL (4.20-5.40); White Blood Count 8.58 K/ul (4.8-10.8)
[2023-02-08 07:49] LABS: BUN Creatinine Ratio 21.7 (10-20); Calcium 9.1 mg/dl (8.6-10.3); Creatinine Clr Calc Pharmacy 140.7 ml/min; Est GFR (African American) 122.3 ml/min; Est GFR (Non-African American) 105.5 ml/min; Potassium 3.8 mmol/L (3.5-5.1)
[2023-02-08] MEDS: INSULIN ASPART PER UNIT CHARGE SC SCH (07:58)
--- NOTE | 2023-02-08 08:18 | Orthopedic Progress Note ---
Date of Service February 08, 2023 Assessment & Plan (1) S/P total knee arthroplasty: Plan: Postop day #2 left total knee arthroplasty -PT/OT -Pain management: Pain control appears to be better with the addition of MS Contin. -DVT prophylaxis: SCDs, teds, Xarelto 10 mg daily -Discharge planning: Plan for home health services upon discharge. We will plan discharge home today after PT. Admission and Anticipated Discharge Date Admission Date: February 05, 2023 Subjective Postop day 2 Patient sitting up in bed resting comfortably. is present. discussed some increased swelling in the knee which was somewhat increased on the medial aspect. No other complaints at this time. Patient appears comfortable. They are hoping that she can go home today. Physical Exam Physical Exam: Cindi dressing intact. Mild dried drainage noted proximally. Calves are soft and nontender. Neurovascular intact. Toes are mobile. She has some mild swelling on the malgorzata-medial aspect of the knee with some slight erythema. This does not appear to be cellulitis. General swelling of the knee consistent with surgery and use of Xarelto. Results & Data Vital Signs (Past 12 Hours) Vital Signs Temp Pulse Resp BP Pulse Ox O2 Del Method 02/08/23 07:25 36.8 C 88 16 118/79 97 Room Air 02/07/23 23:36 86 95 Room Air 02/07/23 20:57 36.8 C 94 H 18 109/75 93 Room Air Laboratory Results 02/08/23 02/08/23 02/08/23 Range/Units 07:52 06:37 06:37 WBC 8.58 (4.8-10.8) K/ul RBC 3.88 L (4.20-5.40) M/uL Hgb 12.3 (12.0-16.0) g/dl Hct 35.7 L (37.0-47.0) % MCV 92.0 (80.0-100.0) fL MCH 31.7 (25.0-34.0) pg MCHC 34.5 (32.0-36.0) g/dL RDW Std Deviation 41.4 (36.4-46.3) fL RDW Coeff of Juancarlos 12.6 (11.5-14.5) % Plt Count 237 (130-400) K/uL MPV 9.9 (9.4-12.4) fL Sodium 136 (136-145) mmol/L Potassium 3.8 (3.5-5.1) mmol/L Chloride 96 L (98-107) mmol/L Carbon Dioxide 34 H (21-32) mmol/L Anion Gap 6 (3-11) BUN 13 (6-23) mg/dl Creatinine 0.60 (0.6-1.2) mg/dl Est Cr Clr Drug Dosing 140.7 ml/min Est GFR ( Amer) 122.3 ml/min Est GFR (Non-Af Amer) 105.5 ml/min BUN/Creatinine Ratio 21.7 H (10-20) Glucose 128 H (70-99(Fasting)) mg/dl POC Glucose 115 H (70-99) mg/dl Calcium 9.1 (8.6-10.3) mg/dl Magnesium (1.7-2.4) mg/dl 02/07/23 02/07/23 02/07/23 Range/Units 20:46 16:35 11:49 WBC (4.8-10.8) K/ul RBC (4.20-5.40) M/uL Hgb (12.0-16.0) g/dl Hct (37.0-47.0) % MCV (80.0-100.0) fL MCH (25.0-34.0) pg MCHC (32.0-36.0) g/dL RDW Std Deviation (36.4-46.3) fL RDW Coeff of Juancarlos (11.5-14.5) % Plt Count (130-400) K/uL MPV (9.4-12.4) fL Sodium (136-145) mmol/L Potassium (3.5-5.1) mmol/L Chloride (98-107) mmol/L Carbon Dioxide (21-32) mmol/L Anion Gap (3-11) BUN (6-23) mg/dl Creatinine (0.6-1.2) mg/dl Est Cr Clr Drug Dosing ml/min Est GFR ( Amer) ml/min Est GFR (Non-Af Amer) ml/min BUN/Creatinine Ratio (10-20) Glucose (70-99(Fasting)) mg/dl POC Glucose 128 H 113 H 114 H (70-99) mg/dl Calcium (8.6-10.3) mg/dl Magnesium (1.7-2.4) mg/dl 02/07/23 02/07/23 Range/Units 08:02 08:02 WBC 8.07 (4.8-10.8) K/ul RBC 3.96 L (4.20-5.40) M/uL Hgb 12.5 (12.0-16.0) g/dl Hct 36.6 L (37.0-47.0) % MCV 92.4 (80.0-100.0) fL MCH 31.6 (25.0-34.0) pg MCHC 34.2 (32.0-36.0) g/dL RDW Std Deviation 42.4 (36.4-46.3) fL RDW Coeff of Juancarlos 12.3 (11.5-14.5) % Plt Count 237 (130-400) K/uL MPV 10.0 (9.4-12.4) fL Sodium 133 L (136-145) mmol/L Potassium 3.6 (3.5-5.1) mmol/L Chloride 98 (98-107) mmol/L Carbon Dioxide 28 (21-32) mmol/L Anion Gap 7 (3-11) BUN 13 (6-23) mg/dl Creatinine 0.59 L (0.6-1.2) mg/dl Est Cr Clr Drug Dosing 143.1 ml/min Est GFR ( Amer) 123.0 ml/min Est GFR (Non-Af Amer) 106.1 ml/min BUN/Creatinine Ratio 22.0 H (10-20) Glucose 138 H (70-99(Fasting)) mg/dl POC Glucose (70-99) mg/dl Calcium 9.0 (8.6-10.3) mg/dl Magnesium 2.0 (1.7-2.4) mg/dl
--- NOTE | 2023-02-10 07:18 | Discharge Summary ---
Date of Service February 10, 2023 Admission HPI Per Admitting Provider 52yo female with PMHx significant for HTN, high cholesterol, DM2, DIONNE, anxiety who presents with ongoing left knee pain. Patient has failed conservative measures. Her pain is interfering with her daily activities and she would like to proceed with surgical intervention. Patient denies headaches, sweats, fevers, chills, double vision, blurred vision, cough, sore throat, dysphagia, chest pain, sob, wheezing, n/v/d/c, numbness, tingling, fatigue, urinary symptoms, mood disorders. ROS positive for left knee pain and stiffness. Admission Exam Per Admitting Provider Constitutional: well developed and well nourished; no acute distress Eyes: PERRL, conjunctivae normal, anicteric sclerae ENMT: external ear and nose normal, oropharynx normal Neck: trachea midline, no thyromegaly Respiratory: normal respiratory effort, lungs clear to auscultation Cardiovascular: RRR, no murmur, no edema Musculoskeletal: Left knee: Varus alignment. Tenderness medial joint line. Mild crepitation. Positive Jeniffer's, stable to valgus and varus stress. ROM 0-125 degrees with pain. Skin: no rashes, warm and dry Neurologic: patellar DTR's 2+ bilat, sensation intact Psychiatric: A+Ox3, euthymic affect Principal Diagnosis Left knee osteoarthritis Discharge Exam Cindi dressing intact. Mild dried drainage noted proximally. Calves are soft and nontender. Neurovascular intact. Toes are mobile. She has some mild swelling on the malgorzata-medial aspect of the knee with some slight erythema. This does not appear to be cellulitis. General swelling of the knee consistent with surgery and use of Xarelto. Discharge Data Allergies Allergy/AdvReac Type Severity Reaction Status Date / Time Penicillins Allergy Intermediate rash Verified 02/05/23 07:55 Consultations 01/31/23 10:47 Consult Hospitalist Routine Procedures Performed Operation Date: 02/05/23 09:45 Actual Procedures p Left Total Knee Arthroplasty(Left) - Pop Flores MD Ordered Studies 02/05/23 05:00 US - OR guided needle placemen Routine Hospital Course (1) S/P total knee arthroplasty: Postop day #3 left total knee arthroplasty -PT/OT -Pain management: Pain control appears to be better with the addition of MS Contin. -DVT prophylaxis: SCDs, teds, Xarelto 10 mg daily -Discharge planning: Plan for home health services upon discharge. We will plan discharge home today after PT. Postop day #2 left total knee arthroplasty -PT/OT -Pain management: 1 dose of Toradol ordered yesterday. Pain is continuing to be uncontrolled. We will adjust her pain medication to see if this can offer her better control. -DVT prophylaxis: SCDs, teds, Xarelto 10 mg daily -Discharge planning: Plan on discharge home with home health when stable. Currently patient's pain is not well controlled. She will work with therapy today. Discussed limiting IV pain medication.Add celebrex daily, add longer acting pain med. If doing much better later today consider discharge home today versus tomorrow. Postop day #1 left total knee arthroplasty -PT/OT -Pain management as written. 1 dose of Toradol ordered. -DVT prophylaxis: SCDs, teds, Xarelto 10 mg daily -AM labs: Hemoglobin 12.2 from 14 preop. Acute blood loss anemia due to surgical loss versus dilutional. Chemistries are pending -Discharge planning: Plan on discharge home with home health when stable. Currently patient's pain is not well controlled. She will work with therapy today. Dose of Toradol ordered. If doing much better later today consider discharge home today, likely tomorrow. Lab Results 02/05/23 02/05/23 02/05/23 Range/Units 08:06 08:25 12:32 WBC (4.8-10.8) K/ul RBC (4.20-5.40) M/uL Hgb (12.0-16.0) g/dl Hct (37.0-47.0) % MCV (80.0-100.0) fL MCH (25.0-34.0) pg MCHC (32.0-36.0) g/dL RDW Std Deviation (36.4-46.3) fL RDW Coeff of Juancarlos (11.5-14.5) % Plt Count (130-400) K/uL MPV (9.4-12.4) fL Sodium (136-145) mmol/L Potassium (3.5-5.1) mmol/L Chloride (98-107) mmol/L Carbon Dioxide (21-32) mmol/L Anion Gap (3-11) BUN (6-23) mg/dl Creatinine (0.6-1.2) mg/dl Est Cr Clr Drug Dosing ml/min Est GFR ( Amer) ml/min Est GFR (Non-Af Amer) ml/min BUN/Creatinine Ratio (10-20) Glucose (70-99(Fasting)) mg/dl POC Glucose 124 H 116 H (70-99) mg/dl Estimat Average Glucose mg/dl Hemoglobin A1c (4.5-5.6) % Calcium (8.6-10.3) mg/dl Magnesium (1.7-2.4) mg/dl POC Ur Test NEG (NEG) 02/05/23 02/05/23 02/05/23 Range/Units 14:08 16:39 20:25 WBC (4.8-10.8) K/ul RBC (4.20-5.40) M/uL Hgb (12.0-16.0) g/dl Hct (37.0-47.0) % MCV (80.0-100.0) fL MCH (25.0-34.0) pg MCHC (32.0-36.0) g/dL RDW Std Deviation (36.4-46.3) fL RDW Coeff of Juancarlos (11.5-14.5) % Plt Count (130-400) K/uL MPV (9.4-12.4) fL Sodium (136-145) mmol/L Potassium (3.5-5.1) mmol/L Chloride (98-107) mmol/L Carbon Dioxide (21-32) mmol/L Anion Gap (3-11) BUN (6-23) mg/dl Creatinine (0.6-1.2) mg/dl Est Cr Clr Drug Dosing ml/min Est GFR ( Amer) ml/min Est GFR (Non-Af Amer) ml/min BUN/Creatinine Ratio (10-20) Glucose (70-99(Fasting)) mg/dl POC Glucose 145 H 138 H 118 H (70-99) mg/dl Estimat Average Glucose mg/dl Hemoglobin A1c (4.5-5.6) % Calcium (8.6-10.3) mg/dl Magnesium (1.7-2.4) mg/dl POC Ur Test (NEG) 02/06/23 02/06/23 02/06/23 Range/Units 05:53 05:53 05:53 WBC 9.02 (4.8-10.8) K/ul RBC 3.85 L (4.20-5.40) M/uL Hgb 12.2 (12.0-16.0) g/dl Hct 36.4 L (37.0-47.0) % MCV 94.5 (80.0-100.0) fL MCH 31.7 (25.0-34.0) pg MCHC 33.5 (32.0-36.0) g/dL RDW Std Deviation 43.4 (36.4-46.3) fL RDW Coeff of Juancarlos 12.4 (11.5-14.5) % Plt Count 221 (130-400) K/uL MPV 10.0 (9.4-12.4) fL Sodium 135 L (136-145) mmol/L Potassium 3.9 (3.5-5.1) mmol/L Chloride 102 (98-107) mmol/L Carbon Dioxide 30 (21-32) mmol/L Anion Gap 3 (3-11) BUN 16 (6-23) mg/dl Creatinine 0.75 (0.6-1.2) mg/dl Est Cr Clr Drug Dosing 112.6 ml/min Est GFR ( Amer) 107.0 ml/min Est GFR (Non-Af Amer) 92.3 ml/min BUN/Creatinine Ratio 21.3 H (10-20) Glucose 137 H (70-99(Fasting)) mg/dl POC Glucose (70-99) mg/dl Estimat Average Glucose 140 mg/dl Hemoglobin A1c 6.5 H (4.5-5.6) % Calcium 8.5 L (8.6-10.3) mg/dl Magnesium (1.7-2.4) mg/dl POC Ur Test (NEG) 02/06/23 02/06/23 02/06/23 Range/Units 07:33 11:39 16:40 WBC (4.8-10.8) K/ul RBC (4.20-5.40) M/uL Hgb (12.0-16.0) g/dl Hct (37.0-47.0) % MCV (80.0-100.0) fL MCH (25.0-34.0) pg MCHC (32.0-36.0) g/dL RDW Std Deviation (36.4-46.3) fL RDW Coeff of Juancarlos (11.5-14.5) % Plt Count (130-400) K/uL MPV (9.4-12.4) fL Sodium (136-145) mmol/L Potassium (3.5-5.1) mmol/L Chloride (98-107) mmol/L Carbon Dioxide (21-32) mmol/L Anion Gap (3-11) BUN (6-23) mg/dl Creatinine (0.6-1.2) mg/dl Est Cr Clr Drug Dosing ml/min Est GFR ( Amer) ml/min Est GFR (Non-Af Amer) ml/min BUN/Creatinine Ratio (10-20) Glucose (70-99(Fasting)) mg/dl POC Glucose 127 H 145 H 129 H (70-99) mg/dl Estimat Average Glucose mg/dl Hemoglobin A1c (4.5-5.6) % Calcium (8.6-10.3) mg/dl Magnesium (1.7-2.4) mg/dl POC Ur Test (NEG) 02/06/23 02/07/23 02/07/23 Range/Units 21:08 07:41 08:02 WBC 8.07 (4.8-10.8) K/ul RBC 3.96 L (4.20-5.40) M/uL Hgb 12.5 (12.0-16.0) g/dl Hct 36.6 L (37.0-47.0) % MCV 92.4 (80.0-100.0) fL MCH 31.6 (25.0-34.0) pg MCHC 34.2 (32.0-36.0) g/dL RDW Std Deviation 42.4 (36.4-46.3) fL RDW Coeff of Juancarlos 12.3 (11.5-14.5) % Plt Count 237 (130-400) K/uL MPV 10.0 (9.4-12.4) fL Sodium (136-145) mmol/L Potassium (3.5-5.1) mmol/L Chloride (98-107) mmol/L Carbon Dioxide (21-32) mmol/L Anion Gap (3-11) BUN (6-23) mg/dl Creatinine (0.6-1.2) mg/dl Est Cr Clr Drug Dosing ml/min Est GFR ( Amer) ml/min Est GFR (Non-Af Amer) ml/min BUN/Creatinine Ratio (10-20) Glucose (70-99(Fasting)) mg/dl POC Glucose 142 H 129 H (70-99) mg/dl Estimat Average Glucose mg/dl Hemoglobin A1c (4.5-5.6) % Calcium (8.6-10.3) mg/dl Magnesium (1.7-2.4) mg/dl POC Ur Test (NEG) 02/07/23 02/07/23 02/07/23 Range/Units 08:02 11:49 16:35 WBC (4.8-10.8) K/ul RBC (4.20-5.40) M/uL Hgb (12.0-16.0) g/dl Hct (37.0-47.0) % MCV (80.0-100.0) fL MCH (25.0-34.0) pg MCHC (32.0-36.0) g/dL RDW Std Deviation (36.4-46.3) fL RDW Coeff of Juancarlos (11.5-14.5) % Plt Count (130-400) K/uL MPV (9.4-12.4) fL Sodium 133 L (136-145) mmol/L Potassium 3.6 (3.5-5.1) mmol/L Chloride 98 (98-107) mmol/L Carbon Dioxide 28 (21-32) mmol/L Anion Gap 7 (3-11) BUN 13 (6-23) mg/dl Creatinine 0.59 L (0.6-1.2) mg/dl Est Cr Clr Drug Dosing 143.1 ml/min Est GFR ( Amer) 123.0 ml/min Est GFR (Non-Af Amer) 106.1 ml/min BUN/Creatinine Ratio 22.0 H (10-20) Glucose 138 H (70-99(Fasting)) mg/dl POC Glucose 114 H 113 H (70-99) mg/dl Estimat Average Glucose mg/dl Hemoglobin A1c (4.5-5.6) % Calcium 9.0 (8.6-10.3) mg/dl Magnesium 2.0 (1.7-2.4) mg/dl POC Ur Test (NEG) 02/07/23 02/08/23 02/08/23 Range/Units 20:46 06:37 06:37 WBC 8.58 (4.8-10.8) K/ul RBC 3.88 L (4.20-5.40) M/uL Hgb 12.3 (12.0-16.0) g/dl Hct 35.7 L (37.0-47.0) % MCV 92.0 (80.0-100.0) fL MCH 31.7 (25.0-34.0) pg MCHC 34.5 (32.0-36.0) g/dL RDW Std Deviation 41.4 (36.4-46.3) fL RDW Coeff of Juancarlos 12.6 (11.5-14.5) % Plt Count 237 (130-400) K/uL MPV 9.9 (9.4-12.4) fL Sodium 136 (136-145) mmol/L Potassium 3.8 (3.5-5.1) mmol/L Chloride 96 L (98-107) mmol/L Carbon Dioxide 34 H (21-32) mmol/L Anion Gap 6 (3-11) BUN 13 (6-23) mg/dl Creatinine 0.60 (0.6-1.2) mg/dl Est Cr Clr Drug Dosing 140.7 ml/min Est GFR ( Amer) 122.3 ml/min Est GFR (Non-Af Amer) 105.5 ml/min BUN/Creatinine Ratio 21.7 H (10-20) Glucose 128 H (70-99(Fasting)) mg/dl POC Glucose 128 H (70-99) mg/dl Estimat Average Glucose mg/dl Hemoglobin A1c (4.5-5.6) % Calcium 9.1 (8.6-10.3) mg/dl Magnesium (1.7-2.4) mg/dl POC Ur Test (NEG) 02/08/23 Range/Units 07:52 WBC (4.8-10.8) K/ul RBC (4.20-5.40) M/uL Hgb (12.0-16.0) g/dl Hct (37.0-47.0) % MCV (80.0-100.0) fL MCH (25.0-34.0) pg MCHC (32.0-36.0) g/dL RDW Std Deviation (36.4-46.3) fL RDW Coeff of Juancarlos (11.5-14.5) % Plt Count (130-400) K/uL MPV (9.4-12.4) fL Sodium (136-145) mmol/L Potassium (3.5-5.1) mmol/L Chloride (98-107) mmol/L Carbon Dioxide (21-32) mmol/L Anion Gap (3-11) BUN (6-23) mg/dl Creatinine (0.6-1.2) mg/dl Est Cr Clr Drug Dosing ml/min Est GFR ( Amer) ml/min Est GFR (Non-Af Amer) ml/min BUN/Creatinine Ratio (10-20) Glucose (70-99(Fasting)) mg/dl POC Glucose 115 H (70-99) mg/dl Estimat Average Glucose mg/dl Hemoglobin A1c (4.5-5.6) % Calcium (8.6-10.3) mg/dl Magnesium (1.7-2.4) mg/dl POC Ur Test (NEG) Total Time Total Time Spent Total Time Spent (In Minutes): 20 Discharge Plan Discharge Items Patient Disposition: Home - Home Health Services Reason For Visit: Osteoarthritis Knee Left Discharge Diagnosis: Left knee osteoarthritis Activity: Per Instructions section Weightbearing: Left weightbearing Weightbearing Comment: As tolerated with walker Non-emergency contact: Surgeon Call non-emergency contact if: you have any medication questions, your pain is concerning for you, you have a fever, your temperature is above 101, your wound has increased redness and your wound has increased drainage Follow-up/Referrals: Pop Flores MD [Surgeon] - (Follow-up with your surgeon or his PA in 2 weeks from the day of surgery for your first postoperative visit.) Elizabeth Leon DO [Primary Care Provider] - Diet: Regular Addtl Attending Provider Instructions: ACTIVITY RECOMMENDATIONS: SELF CARE INSTRUCTIONS AFTER TOTAL KNEE REPLACEMENT A. You may need to continue a physical therapy program after discharge from the hospital. There are several options available to you. Your doctor will assist you in selecting the best one for you. 1. An out-patient facility 2 to 3 times a week for therapy or home therapy. 2. Continue working on all exercises taught to you in the hospital. Your goals should be to increase bending of your knee to 90 degrees and beyond and to fully straighten your knee. B. You may progress at your own pace from walking with a walker or crutches to a cane; then to no assistive devices. C. Make walking a part of your daily routine. Be up as much as comfortable with rest periods throughout the day. Rest with leg elevation is very important. Use the ice wrap frequently for the first 3-4 weeks. D. There are no restrictions on activities. You may ride in a car, shop, participate in motorcoach operator and all social activities. E. Wear the long elastic stockings (SUSHMA hose) 20 hours a day for 2 weeks after surgery. They can be removed several times a day for laundering and for a bath. F. You may shower, no tub baths until cleared by your doctor. SPECIAL CARE INSTRUCTIONS: VERY IMPORTANT TO READ AND REVIEW A. There are a few signs you need to watch for after you are home. Call [facility] if you notice any of the followin. Increased severe knee pain. Some pain is expected especially when you exercise. 2. Increased swelling in your leg or knee; pain or swelling of the calf muscle in either lower leg. 3. Any fluid drainage from the incision. 4. Shortness of breath or chest pain. B. Please call [facility] at if you have any concerns or questions about your operation or recovery. The doctor or his nurse will return your call promptly. C. You must take antibiotics before dental work, bladder, bowel or other surgery. Your doctor will provide you with a permanent care to carry describing this precaution. IMPORTANT: * REMEMBER TO TAKE ASPIRIN, 81 MG, TWICE DAILY FOR 4 WEEKS UNLESS OTHERWISE DIRECTED. THIS IS YOUR BLOOD THINNER. * HIGH RISK PATIENTS MAY BE PRESCRIBED A STRONGER BLOOD THINNER. THIS WILL BE PROVIDED AT DISCHARGE. * CALL IF INCREASED PAIN, REDNESS, DRAINAGE OR FEVER GREATER THAT 101. * WEAR SUSHMA HOSE 20 HOURS PER DAY FOR 2 WEEKS. There is a large suction dressing covering your incision. This will help pull any excess drainage from the wound and allow your incision to heal properly. You may shower with this if you can keep the unit outside of the shower. If any bleeding or leakage is noted please call your doctor's office. This will remain on your incision for 7 days and then should be removed. This can be done yourself or by the home nursing staff if applicable. The entire unit is disposable once removed. Once removed, keep incision clean and dry. If redness or drainage is noted, please call your surgeon. IF INCISION IS LEAKING THROUGH DRESSING, CALL THE OFFICE . FOLLOW UP VISIT: If appointment is not already scheduled: Please call [facility] to make a follow-up appointment for 2 weeks after your surgery at . Stand-Alone Forms: My [facility] [employer], Smoking Cessation Medications and DC Order Prescriptions: New celecoxib [Celebrex] 200 mg Capsule 200 mg PO QAM 30 Days Qty: 30 0RF acetaminophen [Tylenol Extra Strength] 500 mg Tablet 1,000 mg PO Q8 14 Days Qty: 84 0RF morphine 15 mg Tablet Extended Release 15 mg PO Q12 MDD no more than 2 tabs daily Qty: 6 0RF Xarelto 10 mg Tablet 10 mg PO DAILY 28 Days Qty: 28 0RF oxycodone 5 mg Tablet 5 - 10 mg PO Q6H MDD 6 tabs PRN (Reason: pain) Qty: 30 0RF sulfamethoxazole-trimethoprim [Bactrim DS] 800-160 mg tablet 1 tab PO Q12H Qty: 20 0RF polyethylene glycol 3350 [Miralax] 17 gram powder in packet 17 g PO DAILY PRN (Reason: constipation) Qty: 5 0RF naloxone [Narcan] 4 mg/actuation spray,non-aerosol 1 sprays INTNAS ONCE Qty: 2 0RF Continued buspirone 10 mg Tablet 10 mg PO QAM lisinopril 10 mg Tablet 10 mg PO QAM hydrochlorothiazide 25 mg Tablet 25 mg PO QAM duloxetine 60 mg Capsule,Delayed Release(Dr/Ec) 60 mg PO QAM Ozempic 0.25 mg or 0.5 mg (2 mg/3 mL) Pen Injector 0.5 mg SUBCUT Q7D Patient Comments: takes Ozempic Tuesdays- missed 01/28/23 dose so last dose was 01/21/23, surgery on 02/05/23 (aware to hold 7 days prior to surgery) Discontinued meloxicam 7.5 mg Tablet 7.5 mg PO UD Rx Instructions: 7.5mg QAM and 7.5mg in the afternoon as needed Krames/Other Patient Handouts: Managing Type 2 Diabetes Admission Data Admit Date/Time: 02/05/23 12:30 Attending Provider: Pop Flores Admit Provider: Pop Flroes Primary Care Provider: Elizabeth Leon Other Providers: Love Mike I. ; Wes Crowder ; [facility] Other Interventions: Discharge Summary Assessment (RN) Last Done: 02/08/23 09:35
--- NOTE | 2023-02-10 13:27 | Anesthesiology Progress Note ---
Date of Service February 10, 2023 Anesthesia Post Procedure Pain Intensity Left Knee: Pain Intensity: 8 Transfer of Care Handoff Completed per policy Notes Mental Status: alert / awake / arousable and participated in evaluation Patient Amnestic to Procedure: Yes Nausea / Vomiting: adequately controlled Pain: adequately controlled Airway Patency, RR, SpO2: stable & adequate BP & HR: stable & adequate Hydration State: stable & adequate Neuraxial Anesthesia: was administered and sensory block is resolving Anesthetic Complications: no major complications apparent and Pt Satisfied with anesthetic care
== END 2023-02-08 11:36 | disposition home health service (06) ==
LOC: 3E 07:32 → ASU 07:32